=== PATIENT | male | born 1965 | race Two or more races ===

== ENCOUNTER 2018-03-28 01:56 | Emergency (ER) | payer SELFPAY ==
[~2018-03-28] VITALS: Ht 177.8 cm; Wt 114.0 kg
[2018-03-28 06:32] VITALS: BP 159/85
[2018-03-28] MEDS ORDERED: IBUPROFEN 600MG TABLET PO STA (08:01)
== END 2018-03-28 08:48 | disposition left against medical advice (07) ==
LOC: ER 01:56
DX: S59.911A Unspecified injury of right forearm, initial encounter (principal); G47.30 Sleep apnea, unspecified; X50.1XXA Overexertion from prolonged static or awkward postures, initial encounter; Y93.89 Activity, other specified; Y92.238 Other place in hospital as the place of occurrence of the external cause
CPT/HCPCS: 99281